=== PATIENT | female | born 1955 | race Asian ===

== ENCOUNTER 2018-08-16 06:24 | Emergency (ER) | payer OTHER ==
[2018-08-16 06:27] VITALS: TEMP 98.9; BMI 25.7
[2018-08-16] MEDS ORDERED: ONDANSETRON 4 MG/2 ML VIAL IVPUSH ONE (07:07)
[2018-08-16] MEDS ORDERED: SODIUM CHLORIDE 0.9% 1000 ML INFUS.BAG IV ONE (07:07)
[2018-08-16] MEDS ORDERED: ONDANSETRON 4 MG/2 ML VIAL ONE (07:44)
--- NOTE | 2018-08-16 08:03 | PDOC ---
History of Present Illness - General Chief Complaint: Nausea/Vomiting Stated Complaint: VOMITING Time Seen by Provider: 08/16/18 07:09 History Source: Patient Exam Limitations: No Limitations - History of Present Illness Initial Comments: 08/16/18 08:00 63 year old history of chronic constipation, depression (sertraline), hypothyroidism (levothyroxine) who presents with 7x NBNB episodes of emesis that started at 2000 last night. Patient also had 4x bowel movements that were softer but not loose, had diaphoresis, shaking and feeling weak. Per this happens once a year for the past 2-3 years. Patient denies any recent travel, any fevers, any other sick contacts. Denies chest pain, abdominal pain, shortness of breath, dysuria, blood in urine or stool. At bedside the patient has no other complaints. PMHX: as in HPI Meds: none Allergies: none Tob: none Etoh: none Rec drugs: none PCP: none Past History - Past Medical History Allergies/Adverse Reactions: Allergies Allergy/AdvReac Type Severity Reaction Status Date / Time No Known Allergies Allergy Verified 08/16/18 06:27 Home Medications: Ambulatory Orders Levothyroxine [Synthroid -] 50 mcg PO DAILY 08/16/18 Ondansetron HCl [Zofran] 4 mg PO BID #20 tablet 08/16/18 Sertraline HCl 50 mg PO DAILY 08/16/18 - Suicide/Smoking/Psychosocial Hx Smoking History: Never smoked Have you smoked in the past 12 months: No Information on smoking cessation initiated: No Hx Alcohol Use: No Drug/Substance Use Hx: No Review of Systems - Review of Systems Able to Perform ROS?: Yes Is the patient limited Lithuanian proficient: No Constitutional: Yes: Chills. No: Diaphoresis, Fever HEENTM: No: Eye Pain, Tinnitus Respiratory: No: Cough, Orthopnea, Shortness of Breath Cardiac (ROS): No: Chest Pain, Palpitations, Syncope ABD/GI: Yes: See HPI, Diarrhea, Nausea, Vomiting. No: Constipated : No: Burning, Dysuria, Hematuria Musculoskeletal: No: Back Pain, Muscle Pain Integumentary: Yes: See HPI, Sweating Neurological: No: Headache, Numbness, Tingling *Physical Exam - Vital Signs Last Vital Signs Temp Pulse Resp BP Pulse Ox 98.9 F 65 18 156/104 H 95 10/18/18 06:25 08/16/18 06:25 08/16/18 06:25 08/16/18 06:25 08/16/18 06:25 - Physical Exam Comments: GENERAL: Awake, alert, and fully oriented, in no acute distress HEAD: No signs of trauma, normocephalic, atraumatic EYES: EOMI, sclera anicteric, conjunctiva clear ENT: oropharynx clear without exudates. Moist mucosa NECK: Normal ROM, supple LUNGS: No distress, speaks full sentences, clear to auscultation bilaterally HEART: Regular rate and rhythm, normal S1 and S2, no murmurs, rubs or gallops, peripheral pulses normal and equal bilaterally. ABDOMEN: Soft, nontender, normoactive bowel sounds. No guarding, no rebound. No masses EXTREMITIES : Normal inspection, Normal range of motion, no edema. No clubbing or cyanosis. NEUROLOGICAL: Cranial nerves II through XII grossly intact. Normal speech, normal gait, no focal sensorimotor deficits SKIN: Warm, Dry, normal turgor, no rashes or lesions noted ED Treatment Course - LABORATORY CBC & Chemistry Diagram: 08/16/18 08:00 08/16/18 08:00 - Medications Given in the ED: ED Medications Discontinued Medications Generic Name Dose Route Start Last Admin Trade Name Kev PRN Reason Stop Dose Admin Ondansetron HCl 4 mg 08/16/18 07:07 08/16/18 07:57 Zofran Injection IVPUSH 08/16/18 07:08 4 mg ONCE ONE Administration Sodium Chloride 1,000 ml 08/16/18 07:07 08/16/18 07:57 Normal Saline - IV 08/16/18 07:08 1,000 ml ONCE ONE Administration Medical Decision Making - Medical Decision Making 63 year old history of chronic constipation, depression (sertraline), hypothyroidism (levothyroxine) who presents with 7x NBNB episodes of emesis that started at 1999 last night. Patient also had 4x bowel movements that were softer but not loose, had diaphoresis, shaking and feeling weak. Per this happens once a year for the past 2-3 years. Patient denies any recent travel, any fevers, any other sick contacts. Denies chest pain, abdominal pain, shortness of breath, dysuria, blood in urine or stool. At bedside the patient has no other complaints. DDX including but not limited to: gastroenteritis vs ACS vs hyperthyroidism vs UTI W/U: - cbc, cmp, TSH, trop - ua, ucx - EKG - CXR TX: - 1L NS - Zofran 4 ED Course: 08/16/18 10:22 patient reassessed, feels improved but weak. Would like to go home exam unremarkable. No abd pain. PO trial successful. 08/16/18 10:39 repeat BP 120 TSH: 4.94 - mildly elevated TSH, possibly due to missed levothyroxine for past 2 days. Second liter of NS given. Patient feels improved. Patient stable for discharge. Informed of all lab and imaging results. Given follow up instructions and strict return precautions. Patient expressed understanding and agrees to plan. *DC/Admit/Observation/Transfer Diagnosis at time of Disposition: Nausea & vomiting - Discharge Dispostion Disposition: HOME Condition at time of disposition: Stable Decision to Admit order: No - Prescriptions Prescriptions: Ondansetron HCl [Zofran] 4 mg PO BID #20 tablet - Referrals - Patient Instructions Printed Discharge Instructions: DI for Nausea -- Adult, DI for Vomiting -- Adult Additional Instructions: You were seen in the ED for complaints of nausea and vomiting. In the ED you were evaluated with labwork and imaging. Your results were largely unremarkable. There does not appear to be an acute need for immediate hospitalization. You are advised to follow up with your Primary Care Physician within 1 week. Return to the ED immediately if you experience worsening nausea, vomiting, dizziness or weakness, blood in the vomit, urine or stool, fevers, diarrhea, constipation or abdominal pain. - Post Discharge Activity
[2018-08-16 08:08] LABS: BASO % 0.3 % (0-2.0); EOS % 0.1 % (0-4.5); HEMATOCRIT 39.7 % (32.4-45.2); HEMOGLOBIN 13.2 GM/dL (10.7-15.3); LYMPH % 12.1 % (8-40); MCH 30.5 pg (25.7-33.7); MCHC 33.2 g/dl (32.0-36.0); MEAN CELL VOLUME 92.1 fl (80-96); MEAN PLT VOLUME 8.8 fl (7.5-11.1); MONO % 4.2 % (3.8-10.2); NEUT % 83.3 % (42.8-82.8); PLATELET COUNT 271 K/MM3 (134-434); RBC 4.31 M/mm3 (3.60-5.2); RDW 13.3 % (11.6-15.6); WHITE BLOOD COUNT 9.4 K/mm3 (4.0-10.0)
--- NOTE | 2018-08-16 08:19 | PDOC ---
Attending Attestation - Resident Resident Name: Xochitl Hoffman - ED Attending Attestation I have performed the following: I have examined & evaluated the patient, The case was reviewed & discussed with the resident, I agree w/resident's findings & plan, Exceptions are as noted - HPI HPI: 08/16/18 08:18 63 years old chronic constipation depression hyperthyroidism presents with several episodes of nonbloody nonbilious emesis. No abdominal pain. Symptoms are persistent constant moderate with no exacerbating or relieving factors. - Physicial Exam PE: 08/16/18 08:18 Vitals: Triage Vital signs reviewed General Appearance: no acute distress, well nourished well developed, Head: Atraumatic, Chest Wall: Nontender Cardiac: Regular rate and rhythym, no murmurs, no rubs, no gallops, Lungs: Clear to auscultation bilateral, good air movement bilaterally, Abdomen: Soft, non distended, normal bowel sounds, non tender to palpation Extremities: Full range of motion to all extremities, no cyanosis, clubbing, or edema Skin: Warm and dry, no rashes or lesions, no rash, no petechiae Psych: normal mood, normal affect - Medical Decision Making 08/16/18 13:26 63 years old with several hour history of nausea vomiting and several episodes of loose stools. No abdominal pain. Labs notable for slightly elevated leukocytosis. She was given IV fluids and Zofran Reevaluation status post IV fluids and Zofran patient not tolerating fluids. Her repeat abdominal examination demonstrates no abdominal tenderness to palpation no rebound or guarding At this time history and examination is most consistent with viral illness however very strict appendicitis and acute abdominal pain precautions discussed with patient she will return to the ED for any fever returning vomiting inability to tolerate fluids or for any recurrence of abdominal pain Findings, the need for follow-up and strict return instructions discussed with patient. Heart Score/ECG Review - ECG Impressions Comment:: 08/16/18 13:[address] elevations or T-wave inversions.
[2018-08-16] MEDS ORDERED: ACETAMINOPHEN 1000 MG/100 ML VIAL (NON FORMULARY) IVPB ONE (08:22)
[2018-08-16] MEDS ORDERED: ACETAMINOPHEN INJECTION 100 ML IVPB ONE (08:30)
[2018-08-16 08:42] LABS: ALBUMIN 3.6 g/dl (3.4-5.0); ALK PHOS 107 U/L (45-117); ANION GAP 9 MMOL/L (8-16); BILIRUBIN,TOTAL 0.6 mg/dL (0.2-1); BLOOD UREA NITROGEN 18 mg/dL (7-18); CALCIUM 9.3 mg/dL (8.5-10.1); CHLORIDE 105 mmol/L (98-107); CO2 27 mmol/L (21-32); CREATININE 0.7 mg/dL (0.55-1.3); GLUCOSE,RANDOM 129 mg/dL (74-106); MAGNESIUM 2.3 mg/dL (1.8-2.4); POTASSIUM 3.9 mmol/L (3.5-5.1); SGOT/AST 22 U/L (15-37); SGPT/ALT 21 U/L (13-61); SODIUM 141 mmol/L (136-145)
[2018-08-16] MEDS ORDERED: SODIUM CHLORIDE 1,000 ML IV SCH (10:45)
[2018-08-16 10:46] LABS: URINE APPEARANCE CLEAR; URINE BILIRUBIN NEGATIVE (<2.0 mg/dL); URINE COLOR STRAW; URINE GLUCOSE (UA) NEGATIVE (NEGATIVE); URINE KETONE NEGATIVE (NEGATIVE); URINE LEUK ESTERASE NEGATIVE (NEGATIVE); URINE NITRITE NEGATIVE (NEGATIVE); URINE PROTEIN NEGATIVE (NEGATIVE); URINE UROBILINOGEN NEGATIVE mg/dL (0.2-1.0)
[2018-08-16 11:25] VITALS: BP 108/74; PULSE 84
--- NOTE | 2018-08-16 11:47 | EKG ---
Test Reason : Blood Pressure : / mmHG Vent. Rate : 055 BPM Atrial Rate : 055 BPM P-R Int : 134 ms QRS Dur : 074 ms QT Int : 474 ms P-R-T Axes : 044 058 056 degrees QTc Int : 453 ms POOR DATA QUALITY, INTERPRETATION MAY BE ADVERSELY AFFECTED SINUS BRADYCARDIA OTHERWISE NORMAL ECG NO PREVIOUS ECGS AVAILABLE Confirmed by VANNESSA MUÑOZ MD ([id number]) on 08/16/2018 11:46:35 AM Referred By: Confirmed By:VANNESSA MUÑOZ MD
== END 2018-08-16 11:34 | disposition home or self-care (01) ==
LOC: JER 06:24
PROC: 3E0337Z Introduction of Electrolytic and Water Balance Substance into Peripheral Vein, Percutaneous Approach (ICD-10-PCS; principal; 2018-08-16)
PROC: 3E033GC Introduction of Other Therapeutic Substance into Peripheral Vein, Percutaneous Approach (ICD-10-PCS; 2018-08-16)
PROC: 3E033NZ Introduction of Analgesics, Hypnotics, Sedatives into Peripheral Vein, Percutaneous Approach (ICD-10-PCS; 2018-08-16)
DX: R11.2 Nausea with vomiting, unspecified (principal); K59.09 Other constipation; E03.9 Hypothyroidism, unspecified; F32.9 Major depressive disorder, single episode, unspecified
CPT/HCPCS: 36415; 71045-TC-FY; 80053; 81003; 81015; 82550; 83735; 84443; 84484; 85025; 87086; 93005; 93010; 99283-25; J0131; J7030

== ENCOUNTER 2023-03-13 11:57 | Emergency (ER) | payer OTHER ==
[2023-03-13 12:29] VITALS: BP 157/86; PULSE 78; RESP 18; TEMP 97.6; BMI 24.1
[2023-03-13 14:00] LABS: BASO % 0.3 % (0-2.0); HEMATOCRIT 38.6 % (32.4-45.2); HEMOGLOBIN 13.2 GM/dL (10.7-15.3); LYMPH % 25.1 % (8-40); MCH 30.9 pg (25.7-33.7); MCHC 34.1 g/dl (32.0-36.0); MEAN CELL VOLUME 90.5 fl (80-96); MEAN PLT VOLUME 8.3 fl (7.5-11.1); MONO % 6.4 % (3.8-10.2); NEUT % 67.2 % (42.8-82.8); PLATELET COUNT 275 10^3/uL (134-434); RBC 4.27 M/mm3 (3.60-5.2); RDW 13.1 % (11.6-15.6); WHITE BLOOD COUNT 9.5 K/mm3 (4.0-10.0)
[2023-03-13 14:01] LABS: EPI CELLS 5 /uL (0-25.1); HYALINE CASTS 0 /uL (0-3.1); PH,URINE 7.5 (5.0-8.0); URINE APPEARANCE CLEAR; URINE BACTERIA 27 /uL (0-1359); URINE BILIRUBIN NEGATIVE (NEGATIVE); URINE COLOR YELLOW; URINE GLUCOSE (UA) NEGATIVE (NEGATIVE); URINE KETONE NEGATIVE (NEGATIVE); URINE LEUK ESTERASE 1+ (NEGATIVE); URINE NITRITE NEGATIVE (NEGATIVE); URINE PROTEIN NEGATIVE (NEGATIVE); URINE RBC 96 /uL (0-23.9); URINE UROBILINOGEN 0.2 mg/dL (0.2-1.0); URINE WBC 58 /uL (0-25.8)
[2023-03-13 14:22] LABS: POTASSIUM 4.5 mmol/L (3.5-5.1)
[2023-03-13 14:25] LABS: BLOOD UREA NITROGEN 13.6 mg/dL (7-18); CALCIUM 9.6 mg/dL (8.5-10.1); MAGNESIUM 2.3 mg/dL (1.8-2.4)
[2023-03-13 14:28] LABS: CREATININE 0.7 mg/dL (0.55-1.3)
[2023-03-13 14:30] LABS: BILIRUBIN,TOTAL 0.3 mg/dL (0.2-1); TOT PROT 7.7 g/dl (6.4-8.2)
[2023-03-13] MEDS ORDERED: CEPHALEXIN MONOHYDRATE 500 MG CAPSULE (UD) PO ONE (15:16)
[2023-03-13] MEDS ORDERED: CEPHALEXIN MONOHYDRATE 500 MG CAPSULE (UD) ONE (15:22)
== END 2023-03-13 16:02 | disposition home or self-care (01) ==
LOC: JER 11:57
DX: R06.02 Shortness of breath (principal); R53.1 Weakness; K59.00 Constipation, unspecified; Z20.822 Contact with and (suspected) exposure to COVID-19
CPT/HCPCS: 0241U-QW; 36415; 71046-TC-FY; 80053; 81003; 82550; 83735; 84439; 84443; 84484; 85025; 87086; 93005; 93010; 99285-25